=== PATIENT | female | born 1970 | race American Indian/Alaskan Native ===

== ENCOUNTER 2016-11-23 02:28 | Inpatient (IN) | payer MEDICAID ==
--- NOTE | 2016-11-23 02:40 | ED PDOC ---
Psych Transfer Clearance - Clearance Statement Clearance Statement: Reviewed vital signs, lab results and transfer papers. Patient clinically stable for psychiatric admission.
[2016-11-23] MEDS ORDERED: Magnesium Hydroxide Susp 30 ml UD PO PRN (02:57)
[2016-11-23] MEDS ORDERED: DiphenhydrAMINE 50 mg/ml Inj IM PRN (02:57)
[2016-11-23] MEDS ORDERED: Alum-Mag Hydrox-Simethicone Susp (30 mL) PO PRN (02:57)
[2016-11-23 03:22] VITALS: O2SAT 97
[2016-11-23 07:12] LABS: BLOOD UREA NITROGEN 7 mg/dl (7-17); CARBON DIOXIDE 25 mmol/L (22-30); CHLORIDE 106 mmol/L (98-107); GFR AFRICAN-AMERICAN > 60; GLUCOSE,RANDOM 82 mg/dL (65-105); POTASSIUM 3.7 MMOL/L (3.6-5.0); SODIUM 138 mmol/l (132-148)
[2016-11-23 07:32] LABS: T4 5.07 ug/dl (5.5-11.0)
[2016-11-23 07:43] LABS: THYROID STIMULATING HORMONE 0.51 mIU/ML (0.46-4.68)
[2016-11-23] MEDS: Multivitamin With Minerals Tab PO SCH (09:30)
--- NOTE | 2016-11-23 15:09 | CP.PCM.CON ---
History of Present Illness - History of Present Illness History of Present Illness: 45 yo female with no significant PMH, was seen at [facility] because of worsening depression. She was later transferred and admitted to the Psyche unit of [facility]. Review of Systems - Review of Systems All systems: reviewed and no additional remarkable complaints except (aside from those mentioned above, 12 point system review were negative by me) Past Patient History - Infectious Disease Hx of Infectious Diseases: None - Tetanus Immunizations Tetanus Immunization: Unknown - Past Medical History & Family History Past Medical History?: No Past Family History: Reviewed and not pertinent - Past Social History Smoking Status: Heavy Smoker > 10 Cigarettes Daily Chewing Tobacco Use: No Cigar Use: No Alcohol: > 2 Drinks/Day - CARDIAC Hx Cardiac Disorders: No Hx Hypertension: No - PULMONARY Hx Respiratory Disorders: No Hx Tuberculosis: No - NEUROLOGICAL Hx Neurological Disorder: No HX Cerebrovascular Accident: No Hx Seizures: No - HEENT Hx HEENT Problems: No - RENAL Hx Chronic Kidney Disease: No - ENDOCRINE/METABOLIC Hx Endocrine Disorders: No - HEMATOLOGICAL/ONCOLOGICAL Hx Blood Disorders: No Hx Cancer: No Hx Human Immunodeficiency Virus (HIV): No - INTEGUMENTARY Hx Dermatological Problems: No - MUSCULOSKELETAL/RHEUMATOLOGICAL Hx Musculoskeletal Disorders: No Hx Falls: No - GASTROINTESTINAL Hx Gastrointestinal Disorders: No - GENITOURINARY/GYNECOLOGICAL Hx Genitourinary Disorders: No Hx Sexually Transmitted Disorders: No - PSYCHIATRIC Hx Substance Use: Yes - SURGICAL HISTORY Hx Surgeries: Yes Hx Orthopedic Surgery: Yes Other/Comment: left foot surgery (2016) - ANESTHESIA Hx Anesthesia: Yes Hx Anesthesia Reactions: No Meds Allergies/Adverse Reactions: Allergies Allergy/AdvReac Type Severity Reaction Status Date / Time No Known Allergies Allergy Verified 11/22/16 05:19 - Medications Medications: Current Medications Acetaminophen (Tylenol 325mg Tab) 650 mg PO Q4 PRN PRN Reason: pain 4-7 Al Hydrox/Mg Hydrox/Simethicone (Maalox Plus 30 Ml) 30 ml PO Q4 PRN PRN Reason: Dyspepsia Diphenhydramine HCl (Benadryl) 50 mg IM Q6 PRN PRN Reason: Extrapyramidal S/S Unable PO Diphenhydramine HCl (Benadryl) 50 mg PO Q6 PRN PRN Reason: Extrapyramidal Symptoms Last Admin: 11/23/16 08:40 Dose: 50 mg Diphenhydramine HCl (Benadryl) 50 mg PO HS PRN PRN Reason: Sleep Folic Acid (Folic Acid) 1 mg PO DAILY NABIL Haloperidol (Haldol) 5 mg PO Q4 PRN PRN Reason: Agitation Haloperidol Lactate (Haldol) 5 mg IM Q4 PRN PRN Reason: Agitation, Unable to Take PO Lorazepam (Ativan) 2 mg IM Q4 PRN PRN Reason: Anxiety/Agitation,Unable PO Lorazepam (Ativan) 2 mg PO Q4 PRN PRN Reason: Anxiety/Agitation Lorazepam (Ativan) 1 mg PO TID COUNT INCLUDES THE [facility] Last Admin: 11/23/16 08:40 Dose: 1 mg Magnesium Hydroxide (Milk Of Magnesia) 30 ml PO HS PRN PRN Reason: Constipation Multivitamins/Minerals (Therapeutic-M Tab) 1 tab PO DAILY COUNT INCLUDES THE [facility] Nicotine (Nicoderm Cq) 1 patch TD DAILY COUNT INCLUDES THE [facility] Thiamine HCl (Vitamin B1 Tab) 100 mg PO DAILY COUNT INCLUDES THE [facility] Physical Exam - Constitutional Appears: No Acute Distress - Head Exam Head Exam: ATRAUMATIC - Eye Exam Eye Exam: absent: Scleral icterus - ENT Exam ENT Exam: Mucous Membranes Moist - Neck Exam Neck exam: Negative for: Meningismus - Respiratory Exam Respiratory Exam: absent: Rhonchi, Wheezes, Respiratory Distress - Cardiovascular Exam Cardiovascular Exam: REGULAR RHYTHM, +S1, +S2 - GI/Abdominal Exam GI & Abdominal Exam: Soft. absent: Tenderness - Rectal Exam Rectal Exam: Deferred - Extremities Exam Extremities exam: Negative for: pedal edema - Back Exam Back exam: NORMAL INSPECTION - Neurological Exam Neurological exam: Alert, Oriented x3 - Psychiatric Exam Psychiatric exam: Normal Affect - Skin Skin Exam: Dry, Intact Results - Vital Signs Recent Vital Signs: Last Vital Signs Temp 98.1 F 11/23/16 09:00 Pulse 81 11/23/16 09:00 Resp 18 11/23/16 09:00 BP 131/78 11/23/16 09:00 Pulse Ox 97 11/23/16 03:21 - Labs Result Diagrams: 11/23/16 06:53 Labs: Laboratory Results - last 24 hr 11/23/16 06:53 Sodium 138 Potassium 3.7 Chloride 106 Carbon Dioxide 25 Anion Gap 10 BUN 7 Creatinine 0.7 Est GFR ( Amer) > 60 Est GFR (Non-Af Amer) > 60 Random Glucose 82 Calcium 9.0 Thyroxine (T4) 5.07 L Total T3 0.851 L TSH 3rd Generation 0.51 Assessment & Plan (1) Depression Status: Acute Comment: psyche is managing
--- NOTE | 2016-11-23 15:24 | CP.PCM.PCO ---
Physician Communication Note - Physician Communication Note Physician Communication Note: see handwritten initial assessment done during downtime
[2016-11-23 16:53] VITALS: TEMP 97.9
[2016-11-24] MEDS: Multivitamin With Minerals Tab PO SCH (09:04)
[2016-11-24 10:00] VITALS: BP 135/95; PULSE 71; RESP 16
[2016-11-24] MEDS ORDERED: Vitamins A & D Oint UD Foilpak TOP SCH (10:00)
[2016-11-24 10:20] LABS: CHOLESTEROL 163 mg/dL (0-199)
--- NOTE | 2016-11-24 12:59 | PCM.PYCHDC ---
Mental Status Examination - Mental Status Examination Orientation: Person, Place, Situation, Time Memory: Intact Mood: Neutral Affect: Broad Speech: Appropriate Attention: WNL Concentration: WNL Association: WNL Fund of Knowledge: WNL Formal Thought Process: No Impairment Description of patient's judgement and insight: superficial insight Psychotic Thoughts and Behaviors: denies a/v hallucinations Suicidal Ideation: No Current Homicidal Ideation?: No Plan: pt denies any suicidal or homicidal thoughts/plans or intent Discharge Summary - Discharge Note Reason for Hospitalization: alcohol and cocaine use, anxiety, depression Psychiatric History (includes Medical, Family, Personal Hx): history of hospitalizations at [facility]. Laboratory Data: Abnormal Lab Results 11/23/16 11/24/16 06:53 09:05 Triglycerides 97 Cholesterol 163 LDL Cholesterol Direct 53 HDL Cholesterol 83 H RPR Nonreactive Consultations:: List each consultation separately and include: 1. Reason for request. 2. Findings. 3. Follow-up Consultations: seen by the hospitalist Summary of Hospital Course include:: 1. Description of specific treatment plan utilized for patients during their course of treatmen. 2. Summarize the time- course for resolution of acute symptoms and/or regressed behaviors. 3. Describe issues identified and worked on during hospitalization. 4. Describe medication utilized. 5. Describe medical problems identified and treated. 6. Reassessment of suicide risk Summary of Hospital Course: pt was admitted to [facility] and placed on routine safety protocols. pt was seen by the medical records director. she was started on an ssri to target her depression/ anxiety. she was monitored for alcohol withdrawal. pt was initially asking to go to inpt rehab. on day of discharge she stated she wanted to leave and she was not having any suicidal thoughts. she was aware that she would be not given any oupt appointments and would only receive the prescription for prozac for 2 weeks with one refill. pt was goal directed, future oriented at time of discharge. - Final Diagnosis (DSM 5) Condition upon Discharge: GOOD DSM 5: alcohol dependence cocaine dependence depression unspecified Disposition: HOME/ ROUTINE Follow-up Treatment Plan: pt given script for 2 weeks no refill for her zoloft as well as vitamins attend aa/na meeting daily do not use alcohol, tobacco or other illicit substances call 911 if any suicidal or homicidal thoughts pt refused aftercare referrals Prescriptions/Medication Reconciliation: Folic Acid 1 mg PO DAILY #30 tab Multimineral/Multivitamin [Therapeutic-M Tab] 1 tab PO DAILY #30 tab Nicotine 21 mg/24 hr [Nicoderm Cq] 1 patch TD DAILY #30 patch Sertraline [Zoloft] 25 mg PO DAILY #15 tab Thiamine [Vitamin B1 Tab] 100 mg PO DAILY #30 tab - Smoking Cessation Smoking Cessation Medication prescribed: Yes - Antipsychotic Medications Pt discharged on 2 or more routine antipsychotic medications: No
== END 2016-11-24 12:19 | disposition home or self-care (01) | DRG 426 ==
LOC: H.ER 02:28 → H.PSYCH 02:40
PROVIDERS: ADMIT Psychiatry & Neurology Psychiatry; ATTEND Psychiatry & Neurology Psychiatry
PROC: GZHZZZZ Group Psychotherapy (ICD-10-PCS; principal; 2016-11-23)
DX: F32.9 Major depressive disorder, single episode, unspecified (principal); F14.20 Cocaine dependence, uncomplicated; F41.9 Anxiety disorder, unspecified; F10.20 Alcohol dependence, uncomplicated; F17.210 Nicotine dependence, cigarettes, uncomplicated; Y90.9 Presence of alcohol in blood, level not specified